=== PATIENT | female | born 1995 ===

== ENCOUNTER 2022-10-25 09:55 | Outpatient (REF) | payer OTHER, SELFPAY ==
[2022-10-25 10:09] LABS: MANUAL DIFF FLAG NO
[2022-10-25 10:29] LABS: Basophils Percent Auto 0.3 % (0-2); Eosinophils Percent Auto 0.5 % (0-4); Hematocrit 36.9 % (37.0-47.0); Hemoglobin 10.9 g/dl (12.0-16.0); Imm Gran Abs Auto 0.06 X10*3/uL (0.00-0.03); Lymphocytes Absolute Auto 1.7 X10*3/uL (1.2-4.9); Lymphocytes Percent Auto 28.7 % (20-40); Mean Corpuscular HGB Conc 29.5 g/dl (31.0-35.0); Mean Corpuscular Hemoglobin 24.4 pg (27.0-33.0); Mean Corpuscular Volume 82.7 fL (80.0-98.0); Mean Platelet Volume 11.2 fL (9.4-12.3); Monocytes Absolute Auto 0.6 X10*3/uL (0.1-1.2); Monocytes Percent Auto 9.4 % (2-11); Neutrophils Absolute Auto 3.5 x10*3/uL (2.0-8.3); Neutrophils Percent Auto 60.1 % (45-73); Platelet Count 333 X10*3/uL (160-400); Red Blood Count 4.46 X10*6/uL (4.20-5.50); Red Cell Distribution Width 15.2 % (11.0-16.0); White Blood Count 5.9 X10*3/uL (4.8-10.8)
[2022-10-25 11:24] LABS: Alanine Aminotransferase 10 U/L (0-31); Albumin Level 3.9 g/dL (3.5-5.0); Alkaline Phosphatase 73 U/L (39-117); Anion Gap 10 (12-20); Aspartate Amino Transferase 13 U/L (5-31); Bilirubin Total 0.4 mg/dL (0.0-1.0); Blood Urea Nitrogen 13 mg/dL (9-16); Calcium 8.7 mg/dL (8.4-10.2); Carbon Dioxide 23 mmol/L (22-29); Chloride 111 mmol/L (96-108); Cholesterol 149 mg/dL; Estimated Glomerular Filt Rate > 60; Glucose Fasting 92 mg/dL (60-99); HDL Cholesterol 43 mg/dL; LDL Cholesterol Calculated 100 mg/dl; Sodium 140 mmol/L (135-145); Thyroid Stimulating Hormone 0.97 uIU/mL (0.32-4.0); Total Protein 6.1 g/dL (6.5-8.0); Triglycerides 32 mg/dL
== END 2022-10-25 09:56 | disposition home or self-care (01) ==
LOC: HO.LAB 09:55
PROVIDERS: PCP Internal Medicine; Visit Provider Internal Medicine
DX: R42 Dizziness and giddiness (principal); E66.9 Obesity, unspecified; R07.9 Chest pain, unspecified; N20.0 Calculus of kidney; Z68.31 Body mass index [BMI] 31.0-31.9, adult
CPT/HCPCS: 36415; 80053; 80061; 84443; 85025

== ENCOUNTER 2023-06-06 10:07 | Outpatient (REF) | payer OTHER, SELFPAY ==
--- NOTE | ~2023-06-06 | XR_ITS ---
EXAMINATION: XR ABDOMEN KUB CLINICAL INDICATION: Calculus of kidney COMPARISON: None available. TECHNIQUE: AP view of the abdomen. FINDINGS: The bowel gas pattern is normal with no evidence of ileus or obstruction. No unusual soft tissue calcifications are noted. The bones are unremarkable. XR/XR KUB IMPRESSION: Unremarkable chest examination.
--- NOTE | 2023-06-06 10:12 | ECG_ITS ---
Test Reason : CHEST PAIN Blood Pressure : / mmHG Vent. Rate : 077 BPM Atrial Rate : 077 BPM P-R Int : 170 ms QRS Dur : 078 ms QT Int : 376 ms P-R-T Axes : 031 013 -28 degrees QTc Int : 425 ms Normal sinus rhythm T wave abnormality, consider inferior ischemia Abnormal ECG No previous ECGs available Referred By: Dedra Swift Electronically Signed By:UMA BARRETT MD
[2023-06-06 10:28] LABS: MANUAL DIFF FLAG NO
[2023-06-06 11:31] LABS: Basophils Percent Auto 0.3 % (0-2); Eosinophils Percent Auto 0.7 % (0-4); Hematocrit 43.2 % (37.0-47.0); Hemoglobin 13.4 g/dl (12.0-16.0); Imm Gran Abs Auto 0.02 X10*3/uL (0.00-0.03); Imm Gran Pct Auto 0.3 % (0.0-0.4); Lymphocytes Absolute Auto 1.6 X10*3/uL (1.2-4.9); Lymphocytes Percent Auto 27.2 % (20-40); Mean Corpuscular Hemoglobin 28.9 pg (27.0-33.0); Mean Corpuscular Volume 93.3 fL (80.0-98.0); Mean Platelet Volume 11.1 fL (9.4-12.3); Monocytes Absolute Auto 0.5 X10*3/uL (0.1-1.2); Neutrophils Absolute Auto 3.7 x10*3/uL (2.0-8.3); Neutrophils Percent Auto 63.5 % (45-73); Platelet Count 359 X10*3/uL (160-400); Red Blood Count 4.63 X10*6/uL (4.20-5.50); Red Cell Distribution Width 12.9 % (11.0-16.0); White Blood Count 5.9 X10*3/uL (4.8-10.8)
[2023-06-06 12:42] LABS: Iron 74 mcg/dL (30-160); Percent Iron Saturation 22 % (15-50); Total Iron Binding Capacity 340 mcg/dL (228-428); Unsaturated Iron Binding 266 ug/dL
== END 2023-06-06 10:08 | disposition home or self-care (01) ==
LOC: HO.XRAY 10:07
PROVIDERS: PCP Internal Medicine; Visit Provider Internal Medicine
DX: Z01.419 Encounter for gynecological examination (general) (routine) without abnormal findings (principal); D64.9 Anemia, unspecified; R07.9 Chest pain, unspecified; N20.0 Calculus of kidney; Z20.2 Contact with and (suspected) exposure to infections with a predominantly sexual mode of transmission
CPT/HCPCS: 36415; 74018; 83540; 85025; 93005

== ENCOUNTER → 2023-06-06 10:12 | Outpatient (BNV) | payer OTHER, SELFPAY | PROVIDERS: PCP Internal Medicine; Visit Provider Internal Medicine Cardiovascular Disease | DX: R07.9 Chest pain, unspecified (principal) | CPT/HCPCS: 93010 ==

== ENCOUNTER 2023-06-06 12:49 | Outpatient (AMB) | payer OTHER, SELFPAY ==
--- NOTE | 2023-06-06 12:51 | A.OFFVIS_ITS ---
Intake Vital Signs 06/06/23 12:52 Height 5 ft 3 in Weight 176 lb BMI 31.2 BP 118/70 Blood Pressure Location Lt brachial Position Sitting Intake Visit Reasons: New patient Annual Environmental Adviser Required: No Accompanied by: Self / Same As Patient Allergies No Known Allergies Allergy (Verified 06/06/23 12:53) Medication List - Last Reconciled 06/06/23 by Julisa Duque CNM No Known Home Meds HPI New patient Annual HPI Details Patient is here for her 1st medical doctor md 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 She has not yet sexually active though did try once she is talking with somebody and on offer is interested it in finding out more information about all the different methods of control available. She does not have any medical problems as far she knows other than she just found out she is anemic because she just had blood work through her primary care provider. She is going to be starting on iron. She would like to eat better but sometimes does not know what would be good to eat and cooking can be challenging. 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 She does not have any other concerns today other than this is her 1st pelvic ever. 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[employer] Current occupational exposures/hazards: No Cognitive needs: No Hearing needs: No Vision needs: No Female Reproductive History Menstrual Age of Menarche: 10 Date of last menstrual period: 05/26/23 Total pregnancies: 0 Physical Exam Vital Signs: Last Vital Signs BP 118/70 06/06/23 12:52 BMI result Body Mass Index 31.2 Const General: healthy appearing, comfortable, no acute distress, well developed and alert Nutritional Appearance: average body habitus Orientation/consciousness: patient oriented x3 Limitations: no limitations HEENT Head: Yes normocephalic Neck Neck: Yes normal visual inspection Thyroid: Thyroid normal Chest Chest palpation & inspection: normal inspection of the chest Breast/axilla inspection: normal inspection of the breasts and normal inspection of the axillae Breast/axilla palpation: normal palpation of the breasts and normal palpation of the axillae Resp Effort & Inspection: normal respiratory effort GI Inspection: Yes normal to inspection, No Abdominal wall edema and No distended Palpation (GI): Soft to palpation and nontender Other: External vulva completely within normal limits vagina pink and moist with normal appearing clear whitish discharge cervix is nulliparous pink smooth and healthy. Uterus is midposition nontender adnexa nontender not enlarged and good tone with Kegel exhibited by pushing out the speculum. General: Yes bladder normal to palpation External Female Exam: normal external appearance and normal appearance of the urethra Speculum Exam - Vagina: normal appearance of the vagina, normal palpation and normal vaginal discharge Speculum Exam - Cervix: normal appearance of the cervix, normal palpation and nontender Bimanual exam- vagina & uterus: normal bimanual exam, normal palpation, uterine size normal, bladder normal to palpation, consistency normal, normal palpation, uterine mobility normal, uterine shape normal, No Cervical tenderness present, non-tender and no cervical motion tenderness Bimanual Exam- Adnexa, other: normal adnexae, no masses, normal and No adnexal tenderness Neuro General: patient oriented x3 Assessment & Plan Assessment & Plan (1) Well woman exam with routine gynecological exam: Code(s): Z01.419 - Encounter for gynecological examination (general) (routine) without abnormal findings (2) Screen for sexually transmitted diseases: Code(s): Z11.3 - Encounter for screening for infections with a predominantly sexual mode of transmission (3) Screening for cervical cancer: Comment: 06/06/2023 1st Pap done. Patient believes she had Gardasil at the [facility] but will double check her records. Code(s): Z12.4 - Encounter for screening for malignant neoplasm of cervix (4) control counseling: Code(s): Z30.09 - Encounter for other general counseling and advice on contraception Plan -----Discussed in this visit the following: healthy balanced diet, regular and consistent exercise, getting recommended health screens, doing the best she can for her particular health concerns, kegel exercises, pap smear screening and followup recommendations, mammography screening and SBE, normal changes in cycles in her life stage--- .-I reviewed with the patient, all of the currently common used methods of control that are available. We reviewed how they work in the body, how they are taken, common side effects, uncommon side effects, precautions, and contraindications. -Discussed also factors that influence their effectiveness and use, and womens satisfaction with the method. -Discussed how each are used, and drawbacks of each method as well. -Methods covered included: condoms, control pills, control patches, control rings, Depo-Provera, Nexplanon, Mirena and Kyleena IUDs, and ParaGard IUDs. She also inquired about Plan B, and I did teaching about this and offered her prescription and did stress that it is not in fact plan a but if a condom breaks or another method does not get used it can be a helpful tool. I sent a prescription for her to her pharmacy for plan B with 1 refill and if she does decide to become sexually active and therefore needs a better method she should call and make an appointment and we will go over all the other methods again and offer her something else. Orders: Orders Bacterial Vaginosis Panel Today Z12.4 - Encounter for screening for malignant neoplasm of cervix CT NG by PCR Today Z12.4 - Encounter for screening for malignant neoplasm of cervix Pap Smear Today Z12.4 - Encounter for screening for malignant neoplasm of cervix Medications: New levonorgestrel (Plan B One-Step) 1.5 mg PO ONCE 1 tab 2RF Coding Level of Care Code New Pt Prev Care 18-39yr([id number] Diagnoses Well woman exam with routine gynecological exam Z01.419 Screen for sexually transmitted diseases Z11.3 Screening for cervical cancer Z12.4 control counseling Z30.09
[2023-06-06 12:52] VITALS: BP 118/70; BMI 31.2
== END 2023-06-06 13:41 | disposition home or self-care (01) ==
LOC: HO.HWSM 12:49
PROVIDERS: PCP Internal Medicine; Visit Provider Advanced Practice Midwife
DX: Z01.419 Encounter for gynecological examination (general) (routine) without abnormal findings (principal)
CPT/HCPCS: 99385

== ENCOUNTER 2023-06-06 13:32 | Outpatient (REF) | payer OTHER, SELFPAY ==
[2023-06-06 17:59] LABS: CT PCR NOT DETECTED (Not Detect.); NG PCR NOT DETECTED (Not Detect.)
[2023-06-07 14:53] LABS: BV Int Neg Control Negative (Negative); BV Int Pos Control Positive (Positive)
== END 2023-06-06 13:33 | disposition home or self-care (01) ==
LOC: HO.LNP 13:32
PROVIDERS: Visit Provider Advanced Practice Midwife
DX: Z01.419 Encounter for gynecological examination (general) (routine) without abnormal findings (principal); R07.9 Chest pain, unspecified; N20.0 Calculus of kidney; D64.9 Anemia, unspecified; Z20.2 Contact with and (suspected) exposure to infections with a predominantly sexual mode of transmission
CPT/HCPCS: 0353U; 87480; 87510; 87660; 88142

== ENCOUNTER 2023-08-29 13:07 | Outpatient (AMB) | payer OTHER, SELFPAY ==
--- NOTE | 2023-08-29 13:11 | MHC.OFFVIS ---
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 Patient does not have any history of coronary disease or cardiomyopathy or in fact any cardiac issues. No drug use. No major comorbidities. No family history of any premature CAD. It seems she has been having some random chest pains. No specific patterns and essentially happen any time across the chest. No other complaints like shortness of breath or syncope. 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[employer] Current occupational exposures/hazards: No Cognitive needs: No Hearing needs: No Vision needs: No Female Reproductive History Menstrual Age of Menarche: 10 Review of Systems Const All systems reviewed & are unremarkable except as noted in HPI and below Reports as per HPI and Reports no additional complaints Eyes Reports as per HPI and Denies no additional complaints ENT Denies no additional complaints and Reports as per HPI Card Reports as per HPI, Reports no additional complaints, Denies acrocyanosis, Denies chest pain, Denies leg edema, Denies lightheadedness, Denies palpitations and Denies dyspnea Resp Reports as per HPI, Denies no additional complaints and Denies dyspnea GI Reports as per HPI and Denies no additional complaints Reports as per HPI Musc Reports no additional complaints and Reports as per HPI Skin/Breast Reports system reviewed and no additional complaints, except as documented Neuro Reports no additional complaints and Reports as per HPI Psych Reports no additional complaints and Reports as per HPI Endo Reports no additional complaints, Reports as per HPI and Denies palpitations Tomas/Lymph Reports no additional complaints and Reports as per HPI Aller/Immun Reports no additional complaints and Reports as per HPI Physical Exam Vital Signs: Last Vital Signs Pulse 100 08/29/23 13:12 BP 110/76 08/29/23 13:12 BMI result Body Mass Index 32.0 Const General: comfortable and no acute distress Orientation/consciousness: patient oriented x3 HEENT Other: Unremarkable Head: Yes normal to inspection Neck Neck: Yes normal visual inspection Chest Chest palpation & inspection: normal inspection of the chest Resp Auscultation: clear to auscultation bilaterally Cardio Palpation: normal PMI Heart sounds: S1 normal heart sound present, S2 normal heart sound present, no gallops, no murmurs and no rubs GI Palpation (GI): Soft to palpation Back/Spine/Pelvis Other: unremarkable Skin General skin exam: no rashes or lesions noted Neuro General: patient oriented x3 Extrem General: Yes normal to inspection Psych Mental Status: mental status grossly normal Assessment & Plan Assessment & Plan (1) Abnormal EKG: Code(s): R94.31 - Abnormal electrocardiogram [ECG] [EKG] (2) Chest pain: Code(s): R07.9 - Chest pain, unspecified Qualifiers: Chest pain type: precordial pain Qualified Code(s): R07.2 - Precordial pain Plan Recent EKG shows sinus rhythm at 77/Min; nonspecific ST-T changes across the anterolateral leads. Inverted T-waves on the inferior leads. Patient has essentially no risk factors, atypical symptoms but abnormal looking EKG. Will start with an echocardiogram and stress test and based on findings, we can plan further care. Orders: Orders CA echo transthoracic complete Today R07.9 - Chest pain, unspecified CA echo stress exercise Today R07.9 - Chest pain, unspecified Coding Level of Care Code New Pt Level 3 (84379) Diagnoses Abnormal EKG R94.31 Precordial pain R07.2 Chest pain type: precordial pain
[2023-08-29 13:12] VITALS: BP 110/76; PULSE 100; BMI 32.0
== END 2023-08-29 13:28 | disposition home or self-care (01) ==
PROVIDERS: PCP Internal Medicine; Visit Provider Internal Medicine
DX: R94.31 Abnormal electrocardiogram [ECG] [EKG] (principal); R07.2 Precordial pain
CPT/HCPCS: 99203

== ENCOUNTER → 2023-08-29 13:07 | Outpatient (BNVA) | payer OTHER, SELFPAY | PROVIDERS: PCP Internal Medicine; Visit Provider Internal Medicine ==

== ENCOUNTER → 2023-09-25 09:06 | Outpatient (REF) | payer OTHER, SELFPAY ==
--- NOTE | 2023-09-25 09:09 | CA_ITS ---
Transthoracic Echocardiogram Patient (Last, First, Middle): Dedra Manrique, Gender: Female Date of : 1995 Age: 27 Procedure Date: 09/25/2023 Procedure Type: Transthoracic Echocardiogram Location: OP Height: 160.02 cm Weight: 81.65 kg BSA: 1.85 m2 Heart Rate: 81 bpm BP: 122 / 80 mmHg Data Entry Email Processor: ARTIS Referring MD: Huy Mock MD Symptoms: R07.9 - Chest pain, unspecified Study Quality: Fair ECG Rhythm: Sinus Conclusions: - The left ventricular systolic function is normal. The calculated ejection fraction is 58% by biplane method. - No obvious valvular pathology seen on this study. Findings Left Ventricle Normal left ventricular cavity size. There is normal left ventricular wall thickness. The left ventricular systolic function is normal. The calculated ejection fraction is 58% by biplane method. There is no evidence of regional wall motion abnormalities. Diastolic function is normal for age. Right Ventricle Normal right ventricular cavity size and systolic function. Atria Both atria are normal in size. Aortic Valve There is a normal trileaflet aortic valve. There is no aortic valve stenosis. There is no aortic valve regurgitation. Mitral Valve The mitral valve appears normal. There is no mitral valve regurgitation. There is no mitral valve stenosis. Pulmonic Valve The pulmonic valve is likely normal. Tricuspid Valve There is trace tricuspid valve regurgitation. There is no evidence of pulmonary hypertension. Great Vessels The asc aorta is normal in size. Venous The inferior vena cava is normal in size and collapses greater than 50% with inspiration. Pericardium/Pleural There is no evidence of pericardial effusion. Prior Study Comparison No prior study available for comparison. Recommendations, Care & Conclusions No obvious valvular pathology seen on this study. Measurements 2D Linear Measurements IVSd: 0.64 0.6-0.9/0.6-1.0 cm LVIDd: 5.12 3.9-5.3/4.2-5.9 cm LVIDd Index: 2.77 2.4-3.2/2.2-3.1 cm/m2 LVIDs: 3.50 2.0-3.6 cm LVPWd: 0.76 0.7-1.1 cm LA Diam: 3.20 2.7-3.8/3.0-4.0 cm LAIDs Index: 1.73 1.5-2.3 cm/m2 LV Mass: 148.27 67-162/88-224 g LV Mass Index: 80.15 43-95/49-115 g/m2 LVOT Diam: 2.10 3.0+(-)1.3 cm 2D Systolic Function EF 4C: 54.70 >55% EF 2C: 58.30 >55% EF BiP: 57.90 >55% Mitral Valve MV Pk E: 0.62 MV PK A: 0.44 MV Decel Time: 190.00 E/A: 1.40 E'Lateral: 12.90 E'Medial: 10.20 E/E' Med: 6.00 E/E' Lat: 4.80 PHT: 56.00 MVA PHT: 3.93 Decel Johnston: 3.24 Aortic Valve AoV Pk Fernando: 1.13 AoV Mn Fernando: 0.82 AoV VTI: 0.24 AoV Pk Grad: 5.00 Aov Mn Grad: 3.00 ANABEL Cont.VTI: 2.57 LVOT LVOT Pk Fernando: 0.88 LVOT Mn Fernando: 0.64 LVOT VTI: 0.18 LVOT Pk Grad: 3.00 LVOT Mn Grad: 2.00 LVOT Diam: 2.10 LVOT Area: 3.46 Diastolic Function MV Pk E: 0.62 MV Pk A: 0.44 E/A: 1.40 E'Medial: 10.20 E/E' Med: 6.00 E' Laterial: 12.90 E/E' Lat: 4.80 Right Ventricle TAPSE (mm): 20.00 TVS' Fernando: 12.20 Tricuspid Valve RA Press: 3.00 Great Vessels Aorta Sinus of Valsalva: 3.10 2.0-3.5 cm Ao Asc: 2.70 2.1-3.4 cm Pulmonary Valve PV Pk Fernando: 1.07 Peak PV Grad: 5.00 Updated in Other Vendor System with Status of Final Huy Mock MD electronically signed on 09/25/2023 1:03:29 PM with status of Final
== END ==
LOC: HO.CARD 09:06
PROVIDERS: PCP Internal Medicine; Visit Provider Internal Medicine
DX: R07.9 Chest pain, unspecified (principal)
CPT/HCPCS: 93306

== ENCOUNTER → 2023-09-25 09:09 | Outpatient (BNV) | payer OTHER, SELFPAY | PROVIDERS: PCP Internal Medicine; Visit Provider Internal Medicine | DX: R07.9 Chest pain, unspecified (principal) | CPT/HCPCS: 93306 ==

== ENCOUNTER → 2023-10-02 11:02 | Outpatient (REF) | payer OTHER, SELFPAY ==
--- NOTE | 2023-10-02 11:23 | CA_ITS ---
Acquisition Time: 2023-10-02 11:15:46 Total Exercise Time: 00:09:45 Test Indications: Abnormal ECG Medications: CONTROL Protocol: BRANT Max HR: 179 BPM 93% of Pred: 191 BPM Max BP: 144/082 mmHG Max Work Load: 11.3 METS Exercise stress test exercuse 9 min 45 sec of Brant protocol achieving 93% MPHR, without anginal symptoms, with isolated PACs, with normotensive response to exercise, without EKG changes. Echo images obtained by tech at rest and immedately post peak exercise. Test reviewed with Dr. Cervantes. No definity or IV placed due to vasovagal episode. Referred By: Huy Mock Overread By: Radha Bernardo
== END ==
LOC: HO.CARD 11:02
PROVIDERS: PCP Internal Medicine; Visit Provider Internal Medicine
DX: R07.9 Chest pain, unspecified (principal)
CPT/HCPCS: 93017; 93350; Q9957

== ENCOUNTER → 2023-10-02 11:23 | Outpatient (BNV) | payer OTHER, SELFPAY | PROVIDERS: PCP Internal Medicine; Visit Provider Nurse Practitioner | DX: R94.31 Abnormal electrocardiogram [ECG] [EKG] (principal) | CPT/HCPCS: 93016; 93018; 93350; 93352 ==

== ENCOUNTER 2023-11-28 09:37 | Outpatient (AMB) | payer OTHER, SELFPAY ==
--- NOTE | 2023-11-28 09:44 | A.OFFVIS_ITS ---
Intake Vital Signs 11/28/23 09:45 Height 5 ft 3 in Weight 185 lb 10.067 oz BMI 32.9 BP 120/84 Blood Pressure Location Lt brachial Position Sitting Pulse 87 Pulse Source Pulse Oximeter Intake Visit Reasons: f/up ett/ echo Automotive Light Mechanic Required: No Entertainment Production Professional: Entertainment Production Professional Present Allergies No Known Allergies Allergy (Verified 11/28/23 09:47) Medication List - Last Reconciled 11/28/23 by Fatuma Lugo NP-C levonorgestrel (Plan B One-Step) 1.5 mg PO ONCE PFSH Surgical History No pertinent past surgical history Family History Mother Hypertension Father Type II diabetes mellitus High cholesterol Hypertension Social History Housing: House Alcohol intake: current Alcohol intake frequency: holidays/special occasions only Alcohol type: beer and hard liquor Patient Tobacco Use Status: Never used Tobacco e-Cigarette/Vaping Use: Never Used Second Hand Smoke Exposure: No service: No Current occupational status: employed 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[employer] Current occupational exposures/hazards: No Cognitive needs: No Hearing needs: No Vision needs: No Female Reproductive History Menstrual Age of Menarche: 10 Review of Systems Const All systems reviewed & are unremarkable except as noted in HPI and below ENT Denies dizziness Card Denies chest pain, Denies chest pain at rest, Denies chest pain with activity, Denies rapid heart rate, Denies pedal edema, Denies edema, Denies leg edema, Denies lightheadedness, Denies palpitations, Reports dyspnea, Denies dyspnea on exertion and Denies orthopnea Resp Denies cough, Reports dyspnea and Denies dyspnea on exertion GI Denies hematochezia and Denies change in stool character Musc Denies abnormal gait, Denies limited range of motion, Denies muscle cramps, Denies muscle weakness, Denies numbness, Denies radiating pain into limb, Denies stiffness and Denies tingling Neuro Denies abnormal gait, Denies dizziness, Denies numbness and Denies tingling Endo Denies palpitations Physical Exam Vital Signs: Last Vital Signs Pulse 87 11/28/23 09:45 BP 120/84 11/28/23 09:45 BMI result Body Mass Index 32.9 Const General: cooperative, healthy appearing, comfortable and no acute distress Orientation/consciousness: patient oriented x3 Neck Neck: Yes normal visual inspection Resp Effort & Inspection: normal respiratory effort Auscultation: clear to auscultation bilaterally, no crackles, no rales, no rhonchi and no wheezes Cardio Jugular venous distension: no JVD Rate: regular rate Rhythm: regular rhythm Heart sounds: S1 normal heart sound present, S2 normal heart sound present, no murmurs and no rubs Neuro General: patient oriented x3 Extrem General: Yes normal to inspection, No no pedal edema and No calf tenderness Psych Appearance: grossly normal Mental Status: mental status grossly normal Speech and movement: Normal speech and movement present Assessment & Plan Assessment & Plan (1) Abnormal EKG: Code(s): R94.31 - Abnormal electrocardiogram [ECG] [EKG] Plan: Patient had been referred to Cardiology for findings of abnormal EKG. EKG done on 06/06/2023 shows normal sinus rhythm with T-wave abnormality in the inferior leads, lead 3 and AVF, slight T-wave inversion as well seen in V3 and V4. No cardiac risk factors. No reports of anginal sounding symptoms. She did undergo an echocardiogram on 09/25 2023 showing EF 58%, normal valves and no regional wall motion abnormalities. An exercise stress echocardiogram done on 10/02/2023 showed exercise 9 minutes 45 seconds without anginal symptoms and no EKG or echo evidence of ischemia. Test results reviewed with her in detail. Findings on EKG are normal variant. No ischemic findings identified. No further testing needed at this time. Cardiology follow-up as needed Plan Time spent on chart review, documentation, interview and assessment Coding Level of Care Code Est Pt Level 3 (73034) Diagnoses Abnormal EKG R94.31 Time Spent (min) 20
[2023-11-28 09:45] VITALS: BP 120/84; PULSE 87; BMI 32.9
== END 2023-11-28 10:17 | disposition home or self-care (01) ==
PROVIDERS: PCP Internal Medicine; Visit Provider Nurse Practitioner Family
DX: R94.31 Abnormal electrocardiogram [ECG] [EKG] (principal)
CPT/HCPCS: 99213

== ENCOUNTER → 2023-11-28 09:37 | Outpatient (BNVA) | payer OTHER, SELFPAY | PROVIDERS: PCP Internal Medicine; Visit Provider Nurse Practitioner Family | DX: R94.31 Abnormal electrocardiogram [ECG] [EKG] (principal) | CPT/HCPCS: 99212 ==

== ENCOUNTER 2024-01-24 09:03 | Outpatient (AMB) | payer OTHER, SELFPAY ==
[2024-01-24 09:07] VITALS: BP 120/80; BMI 32.6
--- NOTE | 2024-01-24 09:07 | A.OFFPC_ITS ---
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 Last Pap smear was 2022. She denies any chest pain or shortness of breath. No change in bowel or bladder habits. 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 1. Little interest or pleasure in doing things: not at all 2. Feeling down, depressed, or hopeless: not at all 3. Trouble falling or staying asleep, or sleeping too much: not at all 4. Feeling tired or having little energy: not at all 5. Poor appetite or overeating: not at all 6. Feeling bad about yourself - or that you are a failure or have let yourself or your family down: not at all 7. Trouble concentrating on things, such as reading the newspaper or watching television: not at all 8. Moving or speaking so slowly that other people could have noticed. Or the opposite - being so fidgety or restless that you have been moving around a lot more than usual: not at all 9. Thoughts that you would be better off or of hurting yourself in some way: not at all Total score: 0 Depression Screening Interpretation: Negative Depression Screening Done: Yes 77150 - PHQ-9 Billing: Yes Source: Developed by Drs. Chapin Herndon, Kirti Eaton, Daniel Cornejo and colleagues, with an educational lashell from [employer] Thrive Questionnaire Date Thrive assessed: 01/24/24 I am a: Patient What is your living situation today?: I have a steady place to live Within the past 12 months, did the food you bought not last and you didn't have the money to get more?: Never true Within the past 12 months, did you worry whether your food would run out before you got money to buy more?: Never true Do you have trouble paying for medicines?: No Do you have trouble getting transportation to medical appointments?: No Do you have trouble paying your heating and electricity bill?: No Do you have trouble taking care of your child, family member or friend?: No Do you have trouble with day-to-day activities such as bathing, preparing meals, shopping, managing finances, etc.?: No Are you currently unemployed and looking for a job?: No Are you interested in more education?: No Please select the resources that you would like help with: None Currently or been in a relationship where the following occur: no concerns reported THRIVE Score: 0 AUDIT C Alcohol Use Questionnaire (AUDIT-C) 1. How often do you have a drink containing alcohol?: Monthly or less 2. How many drinks containing alcohol do you have on a typical day when you are drinking?: 1 or 2 3. How often do you have six or more drinks on one occasion?: Never Total Score: 1 Score Reviewed/Action Taken: No DELLA-7 AMB Questionnaire DELLA-7 Date DELLA - 7 assessed: 01/24/24 Feeling nervous, anxious, or on edge: 0 = Not at all Not being able to stop or control worryin = Not at all Worrying too much about different things: 0 = Not at all Trouble relaxin = Not at all Being so restless that it is hard to sit still: 0 = Not at all Becoming easily annoyed or irritable: 0 = Not at all Feeling afraid as if something awful might happen: 0 = Not at all Total DELLA-7 score (0-4 normal; 5-9 mild; 10-14 moderate; 15-21 severe): 0 Source: Developed by Drs. Chapin Herndon, Kirti Eaton, Daniel Cornejo and colleagues, with an educational lashell from [employer] DELLA-7 Assessment Billing DELLA-7 Assessment Tool: DELLA-7 Assessment 22610 Review of Systems Const All systems reviewed & are unremarkable except as noted in HPI and below Eyes Reports no additional complaints, Denies change in vision and Denies other visual disturbances Card Denies chest pain at rest, Denies chest pain with activity, Denies edema, Denies irregular heart rhythm, Denies claudication, Denies dyspnea, Denies dyspnea on exertion, Denies orthopnea, Denies paroxysmal nocturnal dyspnea and Denies slow heart rate Resp Denies cough, Denies dyspnea and Denies dyspnea on exertion GI Denies abdominal pain, Denies change in bowel habits, Denies excessive flatus, Denies nausea and Denies vomiting Denies urinary incontinence, Denies urinary hesitancy and Denies urinary urgency Musc Denies abnormal gait, Denies atrophy, Denies deformity and Denies limited range of motion Skin/Breast Denies bleeding lesions, Denies changing lesions and Denies rash Neuro Denies abnormal gait, Denies behavioral changes, Denies confusion and Denies lack of coordination Psych Denies behavioral changes and Denies confusion Physical exam (Primary Care) Vital Signs: Last Vital Signs BP 120/80 01/24/24 09:07 BMI result Body Mass Index 32.6 Tobacco/Smoking Status: Tobacco use Status Tobacco use date assessed 01/24/24 01/24/24 09:11 Patient Tobacco Use Status Never used Tobacco 01/24/24 09:09 e-Cigarette/Vaping Use Never Used 01/24/24 09:09 PHQ-9: PHQ-9 Score PHQ-9: Total score 0 01/24/24 09:21 Depression Screening Interpretation: Negative Thrive Assessment: Date of Thrive Assessment Date Thrive assessed 01/24/24 01/24/24 09:11 Currently or been in a relationship where the following occur: no concerns reported Const General: No confusion Orientation/consciousness: patient oriented x3 and No confusion HENMT Head: Yes normal to inspection, Yes normocephalic and Yes atraumatic Ears: external ears normal Eyes General: appearance normal, both eyes and all related structures Eyelids: Yes eyelids normal Conjunctivae: conjunctivae normal Neck Neck: Yes normal visual inspection and Yes supple Resp Effort & Inspection: normal respiratory effort Auscultation: clear to auscultation bilaterally Cardio Jugular venous distension: no JVD Rate: regular rate Rhythm: regular rhythm Heart sounds: S1 normal heart sound present and S2 normal heart sound present GI Inspection: Yes normal to inspection Palpation (GI): Soft to palpation and nontender Auscultation: normal bowel sounds Skin General skin exam: no rashes or lesions noted Neuro General: patient oriented x3, no focal motor deficits and No confusion Extrem General: Yes full ROM Psych Appearance: grossly normal Assessment and Plan Assessment & Plan (1) Physical exam: Code(s): Z00.00 - Encounter for general adult medical examination without abnormal findings Plan: Repeat in a year. Orders: Orders T Spot TB Today Z11.1 - Encounter for screening for respiratory tuberculosis Mumps Virus IgG Antibody Today Z23 - Encounter for immunization Rubella IgG Antibody Today Z23 - Encounter for immunization Rubeola IgG (Measles) Today Z23 - Encounter for immunization Coding Level of Care Code Est Pt Prev Care 18-39y(35443) Diagnoses Physical exam Z00.00 Additional Codes DELLA-7 Assessment Billing - DELLA-7 Assessment Tool: DELLA-7 Assessment 73391 ([id number]) Time Spent (min) 31
== END 2024-01-24 09:26 | disposition home or self-care (01) ==
PROVIDERS: Visit Provider Internal Medicine
DX: Z00.00 Encounter for general adult medical examination without abnormal findings (principal)
CPT/HCPCS: 99395

== ENCOUNTER 2024-03-08 22:10 | Emergency (ER) | payer OTHER, SELFPAY ==
[2024-03-08 22:17] VITALS: BP 126/79; PULSE 78; RESP 16; TEMP 37.1; O2SAT 100; BMI 31.9
--- NOTE | 2024-03-09 03:12 | ED_ITS ---
HPI - General Adult General Chief complaint: General Medical Stated complaint: Vaginal and Anal pain Time Seen by Provider: 03/09/24 02:21 Source: patient Mode of arrival: ambulatory Limitations: no limitations History of Present Illness HPI narrative: Patient comes to the emergency room complaining of perianal pain for several days, close to a week. Patient denies fever chills, no rash Related Data Previous Rx's ?Medication ?Instructions ?Recorded lidocaine 5 % topical ointment 1 appl topical QID PRN pain #50 03/09/24 grams polyethylene glycol 3350 17 17 g PO DAILY #510 grams 03/09/24 gram/dose oral powder (Miralax) tramadol 50 mg tablet 50 mg PO BID PRN pain #6 tabs 03/09/24 Allergies Allergy/AdvReac Type Severity Reaction Status Date / Time No Known Allergies Allergy Verified 03/08/24 22:18 Review of Systems Review of Systems: Constitutional : No Weight loss, No Fever, No Chills, No Night Sweats, No Fatigue, No Malaise ENT/Mouth : No Hearing loss, No Ear Pain, No Nasal Congestion, No Sinus Pain, No Hoarseness, No sore throat, No Rhinorrhea, No Swallowing Difficulty Eyes: No Eye Pain, No Swelling, No Redness, No Foreign Body, No Discharge, No Vision Changes Cardiovascular : No Chest Pain, No SOB, No Dyspnea on Exertion, No Orthopnea, No Edema, No Palpitations Respiratory : No Cough, No Sputum, No Wheezing, No Smoke Exposure, No Dyspnea Gastrointestinal : No Nausea, No Vomiting, No Diarrhea, No Constipation, No abdominal Pain, No Hematochezia, No Melena Genitourinary : Complaining of perineal pain/anal pain, no irregular bleeding, No Dysuria, No Urinary Frequency, No Hematuria, No Urinary Incontinence, No Urgency, No Flank Pain, No Urinary Flow Changes, No Hesitancy Musculoskeletal : No joint pain, No Myalgias, No Joint Swelling Skin : No Skin Lesions, No rash Neuro : No Weakness, No Numbness, No Paresthesias, No Loss of Consciousness, No Dizziness, No Headache Psych : No Anxiety/Panic, No Depression, No SI/HI/AH/VH, No Social Issues, Heme/Lymph: No Bruising, No Bleeding,No Lymphadenopathy Endocrine : No Polyuria, No Polydipsia, No Temperature Intolerance PMFSH Past Medical History Surgical History No pertinent past surgical history Family History Family History Mother Hypertension Father Type II diabetes mellitus High cholesterol Hypertension Social History Social History Housing: House Alcohol intake: current Alcohol intake frequency: holidays/special occasions only Alcohol type: beer and hard liquor Patient Tobacco Use Status: Never used Tobacco e-Cigarette/Vaping Use: Never Used Second Hand Smoke Exposure: No Advance Directives: No Advance Directives Information Provided: Yes Do you have a plan to hurt others: No Plan service: No Current occupational status: employed 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 Oriented X3. No acute distress. Eyes: Pupils equal, round and reactive to light. ENT: Pharynx normal. Neck: Normal inspection. Neck supple. No lymph nodes noted. No crepitus CVS: Normal heart rate and rhythm. Pulses normal. Normal S1 and S2 Respiratory: No respiratory distress. Breath sounds normal. No Wheezing. No ra les Abdomen: Soft and nontender. No rigidity. No distention. Large external thrombosed hemorrhoid present : Vulva within normal limits, perineum within normal limits. Skin: Skin warm and dry. Normal skin color. Normal skin turgor. Extremities: No lower extremity edema. No Lacerations. No Rash Neuro: Oriented X 3. No motor deficit. No sensory deficit. Moving all extremities. No slurred speech. CN 2 through 12 grossly intact Psych: calm, cooperative, normal affect Course Course Course Narrative: -I discussed with the patient that the best next step, is to use topical anesthetics and drained the thrombosed hemorrhoid. I discussed the procedure with the patient, patient agreeable. -patient given p.o. oxycodone prior to starting. Medications Administered Discontinued Medications Generic Name Dose Route Start Last Admin Trade Name Freq PRN Reason Stop Dose Admin Oxycodone HCl 5 mg 03/09/24 03:12 03/09/24 03:20 Oxycodone Hcl Immed Release 5 Mg Tablet PO 03/09/24 03:13 5 mg ONCE ONE Administration Medical Decision Making Medical Decision Making MDM Narrative: -patient was injected in the thrombosed hemorrhoid with 6 cc of 2% lidocaine with epinephrine -an elliptical incision was made, large thrombus was drained -packing was inserted. -patient tolerated well the procedure -I discussed with the patient that she should use 5% topical lidocaine 10-15 minutes prior to having a bowel movement to help numb. Also, discussed with the patient that she needs to make sure that she has soft bowel movements, MiraLax was sent to the patient's pharmacy. -patient instructed to have close follow-up with Dr. Beatty Differential Diagnosis Differential Diagnoses: The differential diagnosis associated with the presentation includes (Thrombosed hemorrhoid) Critical Care Time Critical Care Time Critical Care Time: Yes Total Critical Care Time: 35 Attestation: I have personally provided critical care time. Time includes review of lab data, radiology results, discussion with consultants, and monitoring for potential decompensation. Intervention performed as documented. Discharge Plan Discharge Clinical Impression: External hemorrhoid, thrombosed Patient Disposition: Home, Self-Care Instructions: Hemorrhoids (ED), Sitz Bath (DC) Additional Instructions: You have packing in the anal area. Be straight to keep it inside at least until Monday. If it becomes soiled with fecal material or if it falls out, continue doing Sitz baths, do not reinsert. Please follow-up with your primary care physician tomorrow. Also, please make sure that you call Dr. Beatty ' office for a follow-up appointment. If you have any worsening or new symptoms, please return to the emergency room or call 911 Prescriptions: New lidocaine 5 % ointment 1 appl topical QID PRN (Reason: pain) Qty: 50 0RF Rx Instructions: Use topical 15-20 minutes prior to bowel movements and p.r.n. pain tramadol 50 mg tablet 50 mg PO BID PRN (Reason: pain) Qty: 6 0RF polyethylene glycol 3350 [Miralax] 17 gram/dose powder 17 g PO DAILY Qty: 510 0RF Referrals: Lul Beatty MD [Physician] - 03/11/24 Print Language: Mongolian
[2024-03-09 03:20] VITALS: BP 122/77; PULSE 66; RESP 14; TEMP 37.1; O2SAT 98
[2024-03-09] MEDS: oxyCODONE HCl Immed Release 5 MG TABLET PO (03:20)
[2024-03-09] MEDS: Lidocaine HCl 2%/Epi 1:100,000 20 ML VIAL INFILTRATI (04:25)
[2024-03-09 04:30] VITALS: BP 122/77; PULSE 66; RESP 14; TEMP 37.1; O2SAT 98
== END 2024-03-09 04:31 | disposition home or self-care (01) ==
PROVIDERS: Emergency Provider Emergency Medicine; PCP Internal Medicine
DX: K64.5 Perianal venous thrombosis (principal)
CPT/HCPCS: 46083; 99284

== ENCOUNTER 2024-03-11 13:45 | Outpatient (AMB) | payer OTHER, SELFPAY ==
--- NOTE | 2024-03-11 13:46 | MHC.OFFVIS ---
Vital Signs 03/11/24 13:55 Height 5 ft 3 in Weight 181 lb BMI 32.1 BP 94/58 L Blood Pressure Location Lt brachial Position Standing Pulse 127 H Intake Visit Reasons: Hemorrhoids Intake Note: This patient presents for [facility] ER follow-up for thrombosed hemorrhoid. Patient c/o; reports pain, unable to sit, reports rectal bleeding. Addiction Social Worker Required: No Accompanied by: Mother Allergies No Known Allergies Allergy (Verified 03/11/24 13:54) Medication List - Last Reconciled 03/11/24 by Lul Beatty MD lidocaine 5% 1 appl topical QID PRN polyethylene glycol 3350 (Miralax) 17 grams PO DAILY tramadol 50 mg PO BID PRN HPI HPI Hemorrhoids: Details: 28-year-old female referred for hemorrhoids. She went to the ER 2 days ago because of anal pain which she had been noticing for about 3-4 days. She was diagnosed to have a large thrombosed hemorrhoid. Drainage of this hemorrhoid was done in the ER and she was referred to [facility]. 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 occupational exposures/hazards: No Cognitive needs: No Hearing needs: No Vision needs: No Female Reproductive History Menstrual Age of Menarche: 10 Review of Systems Const Denies chills and Denies fever(s) Card Denies chest pain, Denies dyspnea and Denies dyspnea on exertion Resp Denies cough, Denies dyspnea and Denies dyspnea on exertion GI Denies hematochezia and Denies change in bowel habits Denies hematuria Musc Denies back pain and Denies limited range of motion Neuro Denies focal weakness and Denies convulsions Psych Denies depression and Denies mood swings Physical Exam Const General: comfortable and no acute distress Orientation/consciousness: patient oriented x3 Neck Neck: Yes no lymphadenopathy Resp Auscultation: clear to auscultation bilaterally Cardio Rhythm: regular rhythm GI Other: Rectal exam shows a swollen hemorrhoid, external, on the right side, about 2 cm in widest dimension, with the I&D site along with the packing. I pulled out the packing completely. Palpation (GI): Soft to palpation, nontender and no guarding Neuro General: patient oriented x3 Office Procedures Anoscopy She was in jp-knife position. The anoscope was gently inserted. A full examination of the anal canal was done. [id number] Assessment & Plan Assessment & Plan (1) External hemorrhoid, thrombosed: Code(s): K64.5 - Perianal venous thrombosis Category: Medical Plan: She apparently had a large thrombosed hemorrhoid that was drained in the ER 2 days ago. She does state that she felt much better after this was done. She still appears to be in some pain however. She says that this has improved significantly since Monday I will prescribe her ibuprofen as well for anti-inflammatory effect. I told her to do hot Sitz baths at home or used the shower to do hot soaks I will see her again next week to re-evaluate her. She may likely benefit for hemorrhoidectomy down the line. She is comfortable with the plan. Coding Level of Care Code New Pt Level 3 (94054) Diagnoses External hemorrhoid, thrombosed K64.5 CPT Codes Details - CPT: 56210-Tfovfrrt ([id number])
[2024-03-11 13:55] VITALS: BP 94/58; PULSE 127; BMI 32.1
== END 2024-03-11 14:15 | disposition home or self-care (01) ==
PROVIDERS: PCP Internal Medicine; Visit Provider Surgery
DX: K64.5 Perianal venous thrombosis (principal)
CPT/HCPCS: 46600; 99203

== ENCOUNTER → 2024-03-11 13:45 | Outpatient (BNVA) | payer OTHER, SELFPAY | PROVIDERS: PCP Internal Medicine; Visit Provider Surgery | DX: K64.5 Perianal venous thrombosis (principal) | CPT/HCPCS: 46600; 99202 ==

== ENCOUNTER 2024-03-20 11:03 | Outpatient (AMB) | payer OTHER, SELFPAY ==
[2024-03-20 11:07] VITALS: BP 120/76; PULSE 97; BMI 32.1
--- NOTE | 2024-03-20 11:07 | A.OFFVIS_ITS ---
Vital Signs 03/20/24 11:07 Height 5 ft 3 in Weight 180 lb 15.992 oz BMI 32.1 BP 120/76 Blood Pressure Location Rt brachial Position Sitting Pulse 97 Intake Visit Reasons: 1 week follow up Thrombosed Hemorrhoids Intake Note: This patient presents for a one week follow-up for thrombosed hemorrhoids. Pt c/o; reports no complaints. Environmental Safety Specialist Required: No Accompanied by: Self / Same As Patient Allergies No Known Allergies Allergy (Verified 03/20/24 11:19) Medication List - Last Reconciled 03/20/24 by Lul Beatty MD ibuprofen 600 mg PO TID PRN lidocaine 5% 1 appl topical QID PRN polyethylene glycol 3350 (Miralax) 17 grams PO DAILY tramadol 50 mg PO BID PRN HPI HPI 1 week follow up Thrombosed Hemorrhoids: Details: She is here for follow-up for her thrombosed hemorrhoids. I would seen her last week for this. I had instructed her on hot Sitz baths and she says this this has improved significantly with regards to pain. Says she is she feels much better. She is able to sit down more comfortably. 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/hazards: No Cognitive needs: No Hearing needs: No Vision needs: No Female Reproductive History Menstrual Age of Menarche: 10 Review of Systems Const Denies chills and Denies fever(s) Card Denies chest pain, Denies dyspnea and Denies dyspnea on exertion Resp Denies cough, Denies dyspnea and Denies dyspnea on exertion GI Denies hematochezia and Denies change in bowel habits Denies hematuria Musc Denies back pain and Denies limited range of motion Neuro Denies focal weakness and Denies convulsions Psych Denies depression and Denies mood swings Physical Exam Vital Signs: Last Vital Signs Pulse 97 03/20/24 11:07 BP 120/76 03/20/24 11:07 BMI result Body Mass Index 32.1 Const General: comfortable and no acute distress Resp Effort & Inspection: normal respiratory effort GI Other: Rectal exam shows external hemorrhoid still with some thrombosis also much less in size compared to last week, not tender anymore Assessment & Plan Assessment & Plan (1) External hemorrhoid, thrombosed: Code(s): K64.5 - Perianal venous thrombosis Category: Medical Plan: This has improved significantly. She no longer has significant pain or tenderness. The size has decreased as well I told her to continue doing warm soaks to the area. I expect the hemorrhoid to continue to shrink in size She does understand that he may continue to have symptoms in the future and if this bothers her, she understands the option of hemorrhoidectomy. She says she will follow up with me down the line on a p.r.n. basis Coding Level of Care Code Est Pt Level 2 (95208) Diagnoses External hemorrhoid, thrombosed K64.5
== END 2024-03-20 11:36 | disposition home or self-care (01) ==
PROVIDERS: PCP Internal Medicine; Visit Provider Surgery
DX: K64.5 Perianal venous thrombosis (principal)
CPT/HCPCS: 99212

== ENCOUNTER → 2024-03-20 11:03 | Outpatient (BNVA) | payer OTHER, SELFPAY | PROVIDERS: PCP Internal Medicine; Visit Provider Surgery | DX: K64.5 Perianal venous thrombosis (principal) | CPT/HCPCS: 99212 ==

== ENCOUNTER 2024-04-09 13:36 | Outpatient (AMB) | payer OTHER, SELFPAY ==
--- NOTE | 2024-04-09 13:48 | MHC.PC.OV ---
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 She went to ER about a month ago due to this matter. Saw surgery shortly after and the hemorrhoids improved with Sitz baths and conservative measures. Today she feels markedly improved and will continue to do sitz baths prn. 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 Chapin Herndon, Kirti Eaton, Daniel Cornejo and colleagues, with an educational lashell from [employer]. Review of Systems Const All systems reviewed & are unremarkable except as noted in HPI and below Card Denies chest pain at rest, Denies chest pain with activity, Denies edema, Denies irregular heart rhythm, Denies claudication, Denies dyspnea, Denies dyspnea on exertion, Denies orthopnea, Denies paroxysmal nocturnal dyspnea and Denies slow heart rate Resp Denies cough, Denies dyspnea and Denies dyspnea on exertion Physical exam (Primary Care) Vital Signs: Last Vital Signs BP 106/82 04/09/24 13:49 BMI result Body Mass Index 31.5 Tobacco/Smoking Status: Tobacco use Status Tobacco use date assessed 01/24/24 04/09/24 13:49 Patient Tobacco Use Status Never used Tobacco 04/09/24 13:49 e-Cigarette/Vaping Use Never Used 04/09/24 13:49 Thrive Assessment: Date of Thrive Assessment Date Thrive assessed 01/24/24 04/09/24 13:49 Resp Effort & Inspection: normal respiratory effort Auscultation: clear to auscultation bilaterally Cardio Jugular venous distension: no JVD Rate: regular rate Rhythm: regular rhythm Heart sounds: S1 normal heart sound present and S2 normal heart sound present Extrem General: Yes full ROM Assessment and Plan Assessment & Plan (1) Hemorrhoids: Code(s): K64.9 - Unspecified hemorrhoids Plan: Continue conservative measures. Coding Level of Care Code Est Pt Level 3 (13039) Diagnoses Hemorrhoids K64.9 Time Spent (min) 19
[2024-04-09 13:49] VITALS: BP 106/82; BMI 31.5
== END 2024-04-09 14:14 | disposition home or self-care (01) ==
PROVIDERS: PCP Internal Medicine; Visit Provider Internal Medicine
DX: K64.9 Unspecified hemorrhoids (principal)
CPT/HCPCS: 99213

== ENCOUNTER 2024-05-24 11:22 | Outpatient (REF) | payer OTHER, SELFPAY ==
[2024-05-27 00:14] LABS: TS Negative Control Passed; TS Panel A 0; TS Panel B 0; TS Positive Control Passed; TSpotTB Negative (Negative)
[2024-05-27 22:48] LABS: Mumps Virus IgG Antibody >300.00 AU/mL; Rubeola IgG (Measles) >300.00 AU/mL
== END 2024-05-24 11:23 | disposition home or self-care (01) ==
LOC: HO.LAB 11:22
PROVIDERS: PCP Internal Medicine; Visit Provider Internal Medicine
DX: Z01.84 Encounter for antibody response examination (principal); Z11.1 Encounter for screening for respiratory tuberculosis
CPT/HCPCS: 36415; 86481; 86735; 86762; 86765

== ENCOUNTER 2024-06-12 10:26 | Outpatient (AMB) | payer OTHER, SELFPAY ==
--- NOTE | 2024-06-12 10:26 | MHC.OFFVIS ---
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 She is not having any eligibility examiner concerns at all she gets regular periods she is not sexually active and has not been sexually active since last year's visit. Last year's Pap was negative. She has no concerns currently or desire to start any method of contraception as she is not sexually active she still has the plan B prescription from last year but has not needed to use it because she did not have any unprotected sex. Her only health issue this year is that in either January or March she can not remember she had an issue with constipation and external hemorrhoids which were very swollen and she went to the emergency room and she was given MiraLax and she does not have a problem with constipation right now she working on having a better diet. She did follow-up with her primary care doctor and she intends to keep with this she was moving stiffly getting off the table and she shared that her right knee was a little bit swollen and bothering her discussed keeping her leg well aligned and quad strengthening exercises and activities to keep her knee as healthy as possible she is not feeling anything catch this time. 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[employer] Current occupational exposures/hazards: No Cognitive needs: No Hearing needs: No Vision needs: No Female Reproductive History Menstrual Age of Menarche: 10 Duration of menses: <3 days Date of last menstrual period: 06/01/24 control method: none Total pregnancies: 0 Date of last pap smear: 06/08/23 (negative) History of abnormal pap smear: No Physical Exam Vital Signs: Last Vital Signs BP 110/62 06/12/24 10:27 BMI result Body Mass Index 31.9 Const General: healthy appearing, comfortable, no acute distress, well developed and alert Nutritional Appearance: average body habitus Orientation/consciousness: patient oriented x3 Limitations: no limitations HEENT Head: Yes normocephalic Neck Neck: Yes normal visual inspection Chest Chest palpation & inspection: normal inspection of the chest Breast/axilla inspection: normal inspection of the breasts and normal inspection of the axillae Breast/axilla palpation: normal palpation of the breasts and normal palpation of the axillae Resp Effort & Inspection: normal respiratory effort GI Inspection: Yes normal to inspection, No Abdominal wall edema and No distended Palpation (GI): Soft to palpation and nontender Other: External exam within normal limits vagina is pink and moist cervix nulliparous pink smooth healthy appearing with normal appearing clear fish whitish mucus. Uterus midposition mobile nontender adnexa nontender. Moderate tone with Kegel instructed on tightening her muscles periodically to strength. General: Yes bladder normal to palpation External Female Exam: normal external appearance and normal appearance of the urethra Speculum Exam - Vagina: normal appearance of the vagina, normal palpation and normal vaginal discharge Speculum Exam - Cervix: normal appearance of the cervix, normal palpation and nontender Bimanual exam- vagina & uterus: normal bimanual exam, normal palpation, uterine size normal, bladder normal to palpation, consistency normal, normal palpation, uterine mobility normal, uterine shape normal, No Cervical tenderness present, non-tender and no cervical motion tenderness Bimanual Exam- Adnexa, other: normal adnexae, no masses, normal and No adnexal tenderness Neuro General: patient oriented x3 Results Reviewed Results Reviewed: Name: Dedra Manrique Age/Sex: 27/F Attending: Julisa Duque CNM : 1995 Submitted by: Julisa Duque CNM Copies to: MR #: [id number] Status: DEP REF Collected: 06/06/23 Location: [facility] Received: 06/08/23 Interpretation Satisfactory for evaluation. Negative for intraepithelial lesion or malignancy. Clinical Information LMP: 05/24/23 Previous PAP test: Unknown date/findings Material Received ThinPrep-Cervical Electronically Signed By: DANIEL Cardona (ASCP) 06/21/23 3619 The Pap Test is a screening procedure with the inherent possibility of both false negative and false positive results. Results should be interpreted in the context of historic and current clinical findings. Reliability of the Pap Test is enhanced by performing the test on a regular repetitive basis. Patient: Dedra Manrique Age/Sex: 27/F MR#: [id number] Page 1 of 1 Assessment & Plan Assessment & Plan (1) Hemorrhoids: Comment: Currently not at all swollen because she is avoiding constipation. Code(s): K64.9 - Unspecified hemorrhoids Category: Medical (2) control counseling: Comment: Currently abstinent, would use condoms if she became active, has prescription for Plan B as well. Code(s): Z30.09 - Encounter for other general counseling and advice on contraception Category: Medical (3) Well woman exam with routine gynecological exam: Code(s): Z01.419 - Encounter for gynecological examination (general) (routine) without abnormal findings Category: Medical (4) Screening for cervical cancer: Comment: 06/06/2023 1st Pap done. Patient believes she had Gardasil at the [facility] but will double check her records./ 06/06/2023 Pap is negative, next pap in 3 yrs ( 2025). 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 She is not having any eligibility examiner concerns at all she gets regular periods she is not sexually active and has not been sexually active since last year's visit. Last year's Pap was negative. She has no concerns currently or desire to start any method of contraception as she is not sexually active she still has the plan B prescription from last year but has not needed to use it because she did not have any unprotected sex. Her only health issue this year is that in either January or March she can not remember she had an issue with constipation and external hemorrhoids which were very swollen and she went to the emergency room and she was given MiraLax and she does not have a problem with constipation right now she working on having a better diet. She did follow-up with her primary care doctor and she intends to keep with this she was moving stiffly getting off the table and she shared that her right knee was a little bit swollen and bothering her discussed keeping her leg well aligned and quad strengthening exercises and activities to keep her knee as healthy as possible she is not feeling anything catch this time. -----Discussed in this visit the following: healthy balanced diet, regular and consistent exercise, getting recommended health screens, doing the best she can for her particular health concerns, kegel exercises, pap smear screening and followup recommendations, mammography screening and SBE, normal changes in cycles in her life stage---discussed staying active in keeping strong with walking and other methods of exercise and using good body mechanics when lifting boxes at her job. . Coding Level of Care Code Est Pt Prev Care 18-39y(15921) Diagnoses Hemorrhoids K64.9 control counseling Z30.09 Well woman exam with routine gynecological exam Z01.419 Screening for cervical cancer Z12.4
[2024-06-12 10:27] VITALS: BP 110/62; BMI 31.9
== END 2024-06-12 11:01 | disposition home or self-care (01) ==
LOC: HO.HWS 10:26
PROVIDERS: PCP Internal Medicine; Visit Provider Advanced Practice Midwife
DX: Z01.419 Encounter for gynecological examination (general) (routine) without abnormal findings (principal); K64.9 Unspecified hemorrhoids; Z30.09 Encounter for other general counseling and advice on contraception
CPT/HCPCS: 99395

== ENCOUNTER → 2024-06-12 10:26 | Outpatient (BNVA) | payer OTHER, SELFPAY | PROVIDERS: PCP Internal Medicine; Visit Provider Advanced Practice Midwife | DX: Z01.419 Encounter for gynecological examination (general) (routine) without abnormal findings (principal); Z30.09 Encounter for other general counseling and advice on contraception; Z12.4 Encounter for screening for malignant neoplasm of cervix; K64.9 Unspecified hemorrhoids | CPT/HCPCS: 99395 ==

== ENCOUNTER 2024-08-02 19:36 | Emergency (ER) | payer OTHER, SELFPAY ==
[2024-08-02 20:03] VITALS: BP 135/91; PULSE 100; RESP 16; TEMP 36.4; O2SAT 98; BMI 31.9
--- NOTE | 2024-08-02 23:49 | ED_ITS ---
HPI - General Adult General Chief complaint: Extremity Problem Stated complaint: Pain in L Leg Time Seen by Provider: 08/02/24 23:29 Source: patient, RN notes reviewed and old records reviewed Mode of arrival: ambulatory Limitations: no limitations History of Present Illness ED Provider: Brianda RAND narrative: 28-year-old female who denies any past medical history presents for evaluation of left leg pain and numbness. She reports her symptoms 1st started yesterday. She has symptoms mostly to the front of the left lower leg and left thigh. Her pain is worse with walking. She endorses being her feet throughout the day. She has no back pain, no hip pain. She has no symptoms of the right side. She is not on control, denies any recent travel Denies any injury to the back or left lower extremity Related Data Previous Rx's ?Medication ?Instructions ?Recorded lidocaine 5 % topical ointment 1 appl topical QID PRN pain #50 03/09/24 grams ibuprofen 600 mg tablet 600 mg PO TID PRN pain #20 tabs 03/11/24 Allergies Allergy/AdvReac Type Severity Reaction Status Date / Time No Known Allergies Allergy Verified 08/02/24 20:06 Review of Systems 2 Constitutional: Constitutional: Denies body ache(s), Denies chills and Denies fever(s) ENT: Denies sore throat Cardiovascular: Cardiovascular: Denies chest pain and Denies dyspnea Respiratory: Respiratory: Denies cough and Denies dyspnea Gastrointestinal: Gastrointestinal: Denies abdominal pain Musculoskeletal: Musculoskeletal: Denies arthralgias, Denies joint swelling and Denies limited range of motion Comments: Reports left leg pain and numbness Integumentary/Breasts: Skin/Breast: Denies rash PMFSH Past Medical History Surgical History No pertinent past surgical history Family History Family History Mother Hypertension Father Type II diabetes mellitus High cholesterol Hypertension Social History Social History Housing: House Alcohol intake: current Alcohol intake frequency: holidays/special occasions only Alcohol type: beer and hard liquor Patient Tobacco Use Status: Never used Tobacco e-Cigarette/Vaping Use: Never Used Second Hand Smoke Exposure: No Advance Directives: No Advance Directives Information Provided: No Do you have a plan to hurt others: No Plan service: No Current occupational status: employed 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[employer] Current occupational exposures/hazards: No Cognitive needs: No Hearing needs: No Vision needs: No Physical Exam ED Vital Signs: Vital Signs - 24 hr 08/02/24 20:03 08/03/24 00:03 Temperature 97.5 F 98.7 F Pulse Rate 100 86 Respiratory Rate 16 16 Blood Pressure 135/91 H 132/94 H Pulse Oximetry 98 97 Oxygen Delivery Method Room Air Room Air BMI result Body Mass Index 31.9 Const General: healthy appearing, comfortable, no acute distress, alert and awake Nutritional Appearance: well nourished Orientation/consciousness: patient oriented x3 HENMT Head: Yes normocephalic and Yes atraumatic Eyes Eyelids: Yes eyelids normal Conjunctivae: conjunctivae normal Sclerae: sclerae normal Corneas: corneas normal Pupils: Equal, round and reactive pupils present EOM: EOMs intact bilaterally Neck Neck: Yes full ROM Resp Effort & Inspection: normal respiratory effort, able to speak in complete sentences and not labored Skin General skin exam: elasticity normal Neuro General: patient oriented x3 Cranial nerves: Yes Equal, round and reactive pupils present and Yes Bilaterally intact EOM present Cognition (Neuro): normal cognition Extrem Other: Moving all extremities well without any obvious deformities. The patient has good range of motion with flexion-extension of the left hip, left knee and left ankle. There is no significant edema, no rashes. She has no palpable cords, no calf tenderness. Medical Decision Making Medical Decision Making [facility] Narrative: [age] old female with no significant past medical history presents for evaluation of vague symptoms to left lower extremity. She complains of occasional pain, occasional numbness. She has no back pain to suggest will take her cause of her pain. She has no skin changes to suggest cellulitic causes. No risk factors for DVT/PE. Plan for basic labs, D-dimer but I feel that a DVT is less likely. Ultrasound is unfortunately gone for the day. Differential Diagnosis Differential Diagnoses: The differential diagnosis associated with the presentation includes Left leg pain Paresthesia Alba's cyst Muscle strain Bronson splints DVT less likely Lab Data [facility] Lab Attestation statement: I reviewed the patient's lab results. No leukocytosis or significant anemia. Normal platelet count. No significant electrolyte abnormalities warranting intervention. The patient's carbon dioxide level is low at 20 which may be related to hyperventilation. I think the patient's symptoms may be related to anxiety. D-dimer is negative 08/03/24 00:07 08/03/24 00:07 Labs: Lab Results 08/03/24 Range/Units 00:07 WBC 8.6 (4.8-10.8) X10*3/uL RBC 4.35 (4.20-5.50) X10*6/uL Hgb 11.7 L (12.0-16.0) g/dl Hct 37.3 (37.0-47.0) % MCV 85.7 (80.0-98.0) fL MCH 26.9 L (27.0-33.0) pg MCHC 31.4 (31.0-35.0) g/dl RDW 13.7 (11.0-16.0) % Plt Count 375 (160-400) X10*3/uL MPV 10.5 (9.4-12.3) fL Immature Gran % (Auto) 0.3 (0.0-0.4) % Neut % (Auto) 65.7 (45-73) % Lymph % (Auto) 24.8 (20-40) % [place] % (Auto) 8.1 (2-11) % Eos % (Auto) 0.8 (0-4) % Baso % (Auto) 0.3 (0-2) % Lymph # (Auto) 2.1 (1.2-4.9) X10*3/uL [place] # (Auto) 0.7 (0.1-1.2) X10*3/uL Eos # (Auto) 0.1 (0.0-0.4) X10*3/uL Baso # (Auto) 0.0 (0.0-0.2) X10*3/uL Abs Immat Gran (auto) 0.03 (0.00-0.03) X10*3/uL Absolute Neuts (auto) 5.6 (2.0-8.3) x10*3/uL Absolute Nucleated RBC 0.000 (0.0-0.012) X10*3/uL Nucleated RBC % (auto) 0.0 (0.0-0.2) /100WBC D-Dimer High Sensitivty < 150 NG/ML Sodium 140 (135-145) mmol/L Potassium 4.0 (3.3-5.1) mmol/L Chloride 112 H (96-108) mmol/L Carbon Dioxide 20 L (22-29) mmol/L Anion Gap 12 (12-20) BUN 12 (9-16) mg/dL Creatinine 0.75 (0.5-1.4) mg/dL Estim Creat Clear Calc 110.9 Estimated GFR > 60 Random Glucose 98 (60-115) mg/dL Calcium 9.3 D (8.4-10.2) mg/dL Discharge Plan Discharge Clinical Impression: Leg pain, left Patient Disposition: Home, Self-Care Instructions: Leg Pain (ED) Additional Instructions: Your blood work today was reassuring. Your blood work indicates that it is extremely unlikely that you have a blood clot in your leg. There is no evidence of infection. Your symptoms may be related to bronson splints You may use ibuprofen or Tylenol for pain Follow-up with your primary doctor Prescriptions: No Action lidocaine 5 % ointment 1 appl topical QID PRN (Reason: pain) Qty: 50 0RF Rx Instructions: Use topical 15-20 minutes prior to bowel movements and p.r.n. pain ibuprofen 600 mg tablet 600 mg PO TID PRN (Reason: pain) Qty: 20 1RF Print Language: Citizen Of [place]
[2024-08-03 00:03] VITALS: BP 132/94; PULSE 86; RESP 16; TEMP 37.1; O2SAT 97
--- NOTE | 2024-08-03 00:08 | MHC.EDTECH ---
This pct just assumed care of patient ,vitals taken ,blood drawn and sent to lab .
[2024-08-03 00:15] LABS: MANUAL DIFF FLAG NO
[2024-08-03 00:16] LABS: Basophils Percent Auto 0.3 % (0-2); Eosinophils Absolute Auto 0.1 X10*3/uL (0.0-0.4); Eosinophils Percent Auto 0.8 % (0-4); Hematocrit 37.3 % (37.0-47.0); Hemoglobin 11.7 g/dl (12.0-16.0); Imm Gran Abs Auto 0.03 X10*3/uL (0.00-0.03); Imm Gran Pct Auto 0.3 % (0.0-0.4); Lymphocytes Absolute Auto 2.1 X10*3/uL (1.2-4.9); Lymphocytes Percent Auto 24.8 % (20-40); Mean Corpuscular HGB Conc 31.4 g/dl (31.0-35.0); Mean Corpuscular Hemoglobin 26.9 pg (27.0-33.0); Mean Corpuscular Volume 85.7 fL (80.0-98.0); Mean Platelet Volume 10.5 fL (9.4-12.3); Monocytes Absolute Auto 0.7 X10*3/uL (0.1-1.2); Monocytes Percent Auto 8.1 % (2-11); Neutrophils Absolute Auto 5.6 x10*3/uL (2.0-8.3); Neutrophils Percent Auto 65.7 % (45-73); Platelet Count 375 X10*3/uL (160-400); Red Blood Count 4.35 X10*6/uL (4.20-5.50); Red Cell Distribution Width 13.7 % (11.0-16.0); White Blood Count 8.6 X10*3/uL (4.8-10.8)
[2024-08-03 00:24] LABS: D Dimer High Sensitivity < 150 NG/ML
[2024-08-03 00:29] LABS: Anion Gap 12 (12-20); Blood Urea Nitrogen 12 mg/dL (9-16); Calcium 9.3 mg/dL (8.4-10.2); Carbon Dioxide 20 mmol/L (22-29); Chloride 112 mmol/L (96-108); Creatinine Clr Calc Pharmacy 110.9; Estimated Glomerular Filt Rate > 60; Glucose Random 98 mg/dL (60-115); Sodium 140 mmol/L (135-145)
[2024-08-03 00:53] VITALS: BP 132/94; PULSE 86; RESP 16; TEMP 37.1; O2SAT 97
== END 2024-08-03 00:53 | disposition home or self-care (01) ==
PROVIDERS: Physician Assistant; Emergency Provider Emergency Medicine; PCP Internal Medicine
DX: M79.605 Pain in left leg (principal); Z79.899 Other long term (current) drug therapy
CPT/HCPCS: 36415; 80048; 85025; 85379; 99283

== ENCOUNTER 2024-10-15 10:04 | Outpatient (AMB) | payer OTHER, SELFPAY ==
--- NOTE | 2024-10-15 10:05 | MHC.PC.OV ---
Vital Signs 10/15/24 10:06 Height 5 ft 3 in Weight 187 lb BMI 33.1 BP 118/80 Blood Pressure Location Lt brachial Position Sitting Intake Visit Reasons: 6mth f/u Intake Note: Patient here for a 6 month follow up. 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 Required: No Accompanied by: Self / Same As Patient Allergies No Known Allergies Allergy (Verified 10/15/24 10:14) Medication List - Last Reconciled 10/15/24 by Dedra Swift MD ibuprofen 600 mg PO TID PRN lidocaine 5% 1 appl topical QID PRN Tobacco use date assessed: 01/24/24 Dental Screening Dental Screen Date: 10/15/24 Did you have a dental visit in the last 12 months?: Yes Did you have a dental problem in the last 6 months where you did not have access to dental care?: No Was dental information given to patient?: Patient has dentist HPI HPI Comments History of Present Illness Details The patient is a 28-year-old female presenting with pain in the left lower leg. The pain reportedly started prior to an emergency room visit in July. An evaluation at that time did not conclusively identify a blood clot; an ultrasound was not performed. Clinicians assessed it did not clinically appear to be a blood clot. The patient was prescribed ibuprofen for pain management. The pain has since subsided. There is no recollection of inciting events that preceded the pain. The patient was informed that reducing weight through diet and exercise could aid in alleviating any potential exacerbation of pain. 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 How often do you have a drink containing alcohol?: Monthly or less 2. How many drinks containing alcohol do you have on a typical day when you are drinking?: 1 or 2 3. How often do you have six or more drinks on one occasion?: Never Total Score: 1 Score Reviewed/Action Taken: No DELLA-7 AMB Questionnaire DELLA-7 Date DELLA - 7 assessed: 01/24/24 Source: Developed by Drs. Chapin Herndon, Kirti Eaton, Daniel Cornejo and colleagues, with an educational lashell from [employer]. Review of Systems Const All systems reviewed & are unremarkable except as noted in HPI and below Eyes Reports no additional complaints, Denies change in vision and Denies other visual disturbances Card Denies chest pain at rest, Denies chest pain with activity, Denies edema, Denies irregular heart rhythm, Denies claudication, Denies dyspnea, Denies dyspnea on exertion, Denies orthopnea, Denies paroxysmal nocturnal dyspnea and Denies slow heart rate Resp Denies cough, Denies dyspnea and Denies dyspnea on exertion GI Denies abdominal pain, Denies change in bowel habits, Denies excessive flatus, Denies nausea and Denies vomiting Denies urinary incontinence, Denies urinary hesitancy and Denies urinary urgency Musc Denies abnormal gait, Denies atrophy, Denies deformity and Denies limited range of motion Skin/Breast Denies bleeding lesions, Denies changing lesions and Denies rash Neuro Denies abnormal gait and Denies lack of coordination Physical exam (Primary Care) Vital Signs: Last Vital Signs BP 118/80 10/15/24 10:06 BMI result Body Mass Index 33.1 BMI Assessment/Plan discussion: High BMI High, discussed plan: lifestyle, weight reduction, dietary and physical activity Tobacco/Smoking Status: Tobacco use Status Tobacco use date assessed 01/24/24 10/15/24 10:09 Patient Tobacco Use Status Never used Tobacco 10/15/24 10:09 e-Cigarette/Vaping Use Never Used 10/15/24 10:09 Thrive Assessment: Date of Thrive Assessment Date Thrive assessed 01/24/24 10/15/24 10:09 Resp Effort & Inspection: normal respiratory effort Auscultation: clear to auscultation bilaterally Cardio Jugular venous distension: no JVD Rate: regular rate Rhythm: regular rhythm Heart sounds: S1 normal heart sound present and S2 normal heart sound present Extrem General: Yes full ROM Office Procedures Flu Questionnaire Does the patient have a severe egg allergy?: No Immunizations Fluarix Triv [id number] (PF) 45 mcg (15 mcg x 3)/0.5 mL IM syringe Performing Provider: Dedra Swift MD [facility] [place] [facility] Documented (not given) by: PHYLICIA Cohen on 10/15/24 10:19 Reason Not Given: Patient Refused Coding Level of Care Code Est Pt Level 3 (76512) Complex EM visit Add On G2211 Diagnoses Left leg pain M79.605 Class 1 obesity with body mass index (BMI) of 33.0 to 33.9 in adult E66.811; Z68.33 Time Spent (min) 19 Assessment & Plan Assessment & Plan (1) Left leg pain: Code(s): M79.605 - Pain in left leg Category: Medical (2) Class 1 obesity with body mass index (BMI) of 33.0 to 33.9 in adult: Code(s): E66.811 - Obesity, class 1; Z68.33 - Body mass index [BMI] 33.0-33.9, adult Category: Medical Plan - For left lower extremity pain: The pain has resolved on its own; no immediate intervention required. Recommend continued use of ibuprofen as necessary for any recurrent pain. - For BMI management: Advise initiation of 30 minutes of exercise at least five times per week and implementation of a low carbohydrate dietary plan to manage weight effectively and avoid exacerbating any potential discomfort. - Further diagnostic studies are not necessary at this time, considering the resolution of symptoms. Patient was informed and verbally consented to the use of an ambient scribe for clinic note documentation during this visit. The patient was counseled on the resolution of her left leg pain, which subsided after initial treatment with ibuprofen, and the lack of clinical indicators pointing towards a more severe condition like deep vein thrombosis at her emergency room visit. I stressed the importance of initiating a regular exercise regimen and adhering to dietary recommendations to address her class 1 obesity, which could impact her overall health and potentially reduce the likelihood of future musculoskeletal discomfort. We discussed why current management focusing on lifestyle alterations was preferable given the remission of pain. No further diagnostic procedures were deemed necessary, provided she remains symptom-free. Orders: Orders Influenza [id number] Immunization Today Z23 - Encounter for immunization Patient Instructions: - Continue taking ibuprofen as needed for any recurrence of leg pain. - Engage in 30 minutes of exercise at least five days a week. - Follow a low carbohydrate dietary plan to manage weight. - Monitor for recurrence of leg pain or any new symptoms and seek medical advice if they occur.
[2024-10-15 10:06] VITALS: BP 118/80; BMI 33.1
== END 2024-10-15 10:25 | disposition home or self-care (01) ==
PROVIDERS: PCP Internal Medicine; Visit Provider Internal Medicine
DX: M79.605 Pain in left leg (principal); E66.811 Obesity, class 1; Z68.33 Body mass index [BMI] 33.0-33.9, adult; Z23 Encounter for immunization

== ENCOUNTER → 2024-10-15 10:04 | Outpatient (BNVA) | payer OTHER, SELFPAY | PROVIDERS: PCP Internal Medicine; Visit Provider Internal Medicine | DX: E66.811 Obesity, class 1 (principal); Z68.33 Body mass index [BMI] 33.0-33.9, adult; Z71.3 Dietary counseling and surveillance | CPT/HCPCS: 90471; 99212 ==

== ENCOUNTER 2025-01-29 09:35 | Outpatient (AMB) | payer OTHER, SELFPAY ==
--- NOTE | 2025-01-29 09:37 | A.OFFPC_ITS ---
Vital Signs 01/29/25 09:38 Height 5 ft 3 in Weight 183 lb BMI 32.4 BP 120/82 Blood Pressure Location Lt brachial Position Sitting Intake Visit Reasons: PE Intake Note: Patient here for a physical exam Manager Validation Required: No Accompanied by: Self / Same As Patient Allergies No Known Allergies Allergy (Verified 01/29/25 09:57) Medication List - Last Reconciled 01/29/25 by Dedra Swift MD No Known Home Meds Tobacco use date assessed: 01/29/25 Dental Screening Dental Screen Date: 01/29/25 Did you have a dental visit in the last 12 months?: Yes Did you have a dental problem in the last 6 months where you did not have access to dental care?: No Was dental information given to patient?: Patient has dentist HPI HPI Comments History of Present Illness Details The patient is a 29-year-old female presenting for an annual physical examination and wellness check. She confirmed her tetanus vaccination was most recently administered in 2022, and she has completed a recent Pap smear. Mild depressive symptoms were noted but are not presently impacting her routine. Plans were outlined for laboratory work to assess lipid profile, blood glucose levels, renal and hepatic functions, and to reevaluate previously noted borderline low hemoglobin levels. - Last tetanus vaccination administered in 2022; next due in 2032. - Screening plans include assessments fo r cholesterol, glucose, renal, and hepatic functions. - Last Pap smear conducted in 2022. - Plan to evaluate and monitor hemoglobi n levels due to previous borderline low readings. 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 1. Little interest or pleasure in doing things: more than half the days 2. Feeling down, depressed, or hopeless: not at all 3. Trouble falling or staying asleep, or sleeping too much: not at all 4. Feeling tired or having little energy: not at all 5. Poor appetite or overeating: several days 6. Feeling bad about yourself - or that you are a failure or have let yourself or your family down: not at all 7. Trouble concentrating on things, such as reading the newspaper or watching television: not at all 8. Moving or speaking so slowly that other people could have noticed. Or the opposite - being so fidgety or restless that you have been moving around a lot more than usual: not at all 9. Thoughts that you would be better off or of hurting yourself in some way: not at all Total score: 3 Depression Screening Interpretation: Positive Depression Screening Follow-up: Existing condition and Follow-up Visit Requested Depression Screening Done: Yes 29936 - PHQ-9 Billing: Yes Source: Developed by Drs. Chapin Herndon, Kirti Eaton, Daniel Cornejo and colleagues, with an educational lashell from [employer]. Thrive Questionnaire Date Thrive assessed: 01/29/25 I am a: Patient What is your living situation today?: I have a steady place to live Within the past 12 months, did the food you bought not last and you didn't have the money to get more?: Never true Within the past 12 months, did you worry whether your food would run out before you got money to buy more?: Never true Do you have trouble paying for medicines?: No Do you have trouble getting transportation to medical appointments?: No Do you have trouble paying your heating and electricity bill?: No Do you have trouble taking care of your child, family member or friend?: No Do you have trouble with day-to-day activities such as bathing, preparing meals, shopping, managing finances, etc.?: No Are you currently unemployed and looking for a job?: No Are you interested in more education?: No Please select the resources that you would like help with: None Currently or been in a relationship where the following occur: No concerns reported THRIVE Score: 0 AUDIT C Alcohol Use Questionnaire (AUDIT-C) 1. How often do you have a drink containing alcohol?: Monthly or less 2. How many drinks containing alcohol do you have on a typical day when you are drinking?: 1 or 2 3. How often do you have six or more drinks on one occasion?: Less than monthly Total Score: 2 Score Reviewed/Action Taken: No DELLA-7 AMB Questionnaire DELLA-7 Date DELLA - 7 assessed: 01/29/25 Feeling nervous, anxious, or on edge: 0 = Not at all Not being able to stop or control worryin = Not at all Worrying too much about different things: 0 = Not at all Trouble relaxin = Not at all Being so restless that it is hard to sit still: 0 = Not at all Becoming easily annoyed or irritable: 0 = Not at all Feeling afraid as if something awful might happen: 0 = Not at all Total DELLA-7 score (0-4 normal; 5-9 mild; 10-14 moderate; 15-21 severe): 0 Source: Developed by Drs. Chapin Herndon, Kirti Eaton, Daniel Cornejo and colleagues, with an educational lashell from [employer]. DELLA-7 Assessment Billing DELLA-7 Assessment Tool: DELLA-7 Assessment 96600 Review of Systems Const All systems reviewed & are unremarkable except as noted in HPI and below Card Denies chest pain at rest, Denies chest pain with activity, Denies edema, Denies irregular heart rhythm, Denies claudication, Denies dyspnea, Denies dyspnea on exertion, Denies orthopnea, Denies paroxysmal nocturnal dyspnea and Denies slow heart rate Resp Denies cough, Denies dyspnea and Denies dyspnea on exertion GI Denies abdominal pain, Denies change in bowel habits, Denies excessive flatus, Denies nausea and Denies vomiting Physical exam (Primary Care) Vital Signs: Last Vital Signs BP 120/82 01/29/25 09:38 BMI result Body Mass Index 32.4 BMI Assessment/Plan discussion: High BMI High, discussed plan: lifestyle, weight reduction, dietary and physical activity Tobacco/Smoking Status: Tobacco use Status Tobacco use date assessed 03/19/25 03/19/25 09:44 Patient Tobacco Use Status Never used Tobacco 01/29/25 09:44 e-Cigarette/Vaping Use Never Used 01/29/25 09:44 PHQ-9: PHQ-9 Score PHQ-9: Total score 3 01/29/25 10:04 Depression Screening Interpretation: Positive Depression Screening Follow-up: Existing condition and Follow-up Visit Requested Thrive Assessment: Date of Thrive Assessment Date Thrive assessed 01/29/25 01/29/25 09:44 Currently or been in a relationship where the following occur: No concerns reported Resp Effort & Inspection: normal respiratory effort Auscultation: clear to auscultation bilaterally Cardio Jugular venous distension: no JVD Rate: regular rate Rhythm: regular rhythm Heart sounds: S1 normal heart sound present and S2 normal heart sound present Extrem General: Yes full ROM Coding Level of Care Code Est Pt Prev Care 18-39y(68255) Diagnoses Physical exam Z00.00 Additional Codes DELLA-7 Assessment Billing - DELLA-7 Assessment Tool: DELLA-7 Assessment 51185 ([id number]) PHQ-9 - 48203 - PHQ-9 Billing: Yes ([id number]) Time Spent (min) 31 Assessment & Plan Assessment & Plan (1) Physical exam: Code(s): Z00.00 - Encounter for general adult medical examination without abnormal findings Category: Medical Plan Screening tests are to be conducted for lipid profiling, glycemic control, renal, and liver functions. Given her history of anemia, hemoglobin re- evaluation will occur alongside these tests: Mild depressive symptoms were verbally reported but appear non-disruptive. The patient will be reminded to complete all laboratory testing within three months, observing an eight-hour fast, and consuming water is permitted during fasting. These steps will help ensure continued health monitoring and care. Patient was informed and verbally consented to the use of an ambient scribe for clinic note documentation during this visit. During today's visit, I discussed the patient's ongoing health maintenance plan, reaffirming the up-to-date status of her tetanus vaccination and the completed Pap smear. We reviewed the necessity and importance of upcoming laboratory tests for cholesterol, glucose, kidney, liver functions, and hemoglobin evaluation. The patient exhibited understanding of the recommended eight-hour fasting period for accurate lab results and consented to complete all tests within the advised timeframe. We briefly touched on her mild depressive symptoms; however, no primary intervention was required at this moment as they do not significantly impact her quality of life. Follow-up was scheduled based on test results. Orders: Orders Complete Blood Count Auto Diff Today D64.9 - Anemia, unspecified Lipid Panel Today Z00.00 - Encounter for general adult medical examination without abnormal findings IRON PROFILE Today D64.9 - Anemia, unspecified Comprehensive [place]. Panel Fast Today Z00.00 - Encounter for general adult medical examination without abnormal findings Patient Instructions: - Schedule and complete laboratory tests within the next three months. - Fast for eight hours prior to blood work (can consume water). - Return for test results review and any needed follow-up. - Maintain current tetanus vaccination schedule (next due in 2032). - Monitor and report any changes in symptoms or health status.
[2025-01-29 09:38] VITALS: BP 120/82; BMI 32.4
--- OUTSIDE RECORDS SUMMARY | 2025-01-29 10:38 | XMS_ITS | Clinical Summary ---
Author Organization [facility] ity Address [address] [place] [address] Care Team Providers Care Reproduction Artist Name Role Phone Unavailable Primary Care Provider Unavailabl e Social History Tobacco Use Types Packs/Day Years Used Date Smoking Tobacco: Never Assessed Comments Unknown Sex and Gender Information Value Date Recorded Sex Assigned at Not on file Legal Sex Female 1:39 PM EDT Gender Identity Not on file Sexual Orientation Not on file Plan of Treatment Health Maintenance Due Date Last Done Comments DTaP,Tdap,and Td Vaccines (1 - Tdap) 2012 Hepatitis B Vaccines (1 of 3 - 19+ 3-dose series) 2012 Cervical Cancer Screening: P ap Smear 2014 Depression Screening 06/14/2024 HIV Screening 06/14/2024 Hepatitis C Screening 06/14/2024 Social Influencers of Health Screening 06/14/2024 COVID-19 Vaccine ( - 2023-2 5 season) 2024 Influenza Vaccine (#1) 2024 HIB Vaccines Aged Out No longer eligi ble based on patient's age to complete this topic HPV Vaccines Aged Out No longer eligi ble based on patient's age to complete this topic Hepatitis A Vaccines Aged Out No long er eligible based on patient's age to complete this topic IPV Vaccines Aged Out No longer eligi ble based on patient's age to complete this topic MMR Vaccines Aged Out No longer eligi ble based on patient's age to complete this topic Meningococcal ACWY Vaccine Aged Out N o longer eligible based on patient's age to complete this topic Meningococcal B Vacine Aged Out No lo nger eligible based on patient's age to complete this topic Pneumococcal Vaccine: Pediat rics (0 to 5 Years) and At-Risk Patients (6 to 64 Years) Aged Out No longer eligible b ased on patient's age to complete this topic RSV Immunization Patients Un patrice 20 months Aged Out No longer eligible b ased on patient's age to complete this topic Varicella Vaccines Aged Out No longer eligible based on patient's age to complete this topic
== END 2025-01-29 10:07 | disposition home or self-care (01) ==
LOC: HO.HMCH 09:35
PROVIDERS: PCP Internal Medicine; Visit Provider Internal Medicine
DX: Z00.00 Encounter for general adult medical examination without abnormal findings (principal)

== ENCOUNTER 2025-01-29 09:35 | Outpatient (REF) | payer OTHER, SELFPAY ==
[2025-01-29 10:31] LABS: MANUAL DIFF FLAG NO
[2025-01-29 11:06] LABS: Basophils Percent Auto 0.3 % (0-2); Eosinophils Absolute Auto 0.1 X10*3/uL (0.0-0.4); Hematocrit 37.5 % (37.0-47.0); Hemoglobin 11.9 g/dl (12.0-16.0); Imm Gran Abs Auto 0.02 X10*3/uL (0.00-0.03); Imm Gran Pct Auto 0.3 % (0.0-0.4); Lymphocytes Absolute Auto 1.7 X10*3/uL (1.2-4.9); Lymphocytes Percent Auto 28.2 % (20-40); Mean Corpuscular HGB Conc 31.7 g/dl (31.0-35.0); Mean Corpuscular Hemoglobin 26.5 pg (27.0-33.0); Mean Corpuscular Volume 83.5 fL (80.0-98.0); Mean Platelet Volume 10.6 fL (9.4-12.3); Monocytes Absolute Auto 0.7 X10*3/uL (0.1-1.2); Monocytes Percent Auto 11.1 % (2-11); Neutrophils Absolute Auto 3.5 x10*3/uL (2.0-8.3); Neutrophils Percent Auto 59.1 % (45-73); Platelet Count 346 X10*3/uL (160-400); Red Blood Count 4.49 X10*6/uL (4.20-5.50); Red Cell Distribution Width 14.4 % (11.0-16.0)
[2025-01-29 12:07] LABS: Alanine Aminotransferase 21 U/L (0-31); Albumin Level 4.1 g/dL (3.5-5.0); Alkaline Phosphatase 70 U/L (39-117); Anion Gap 9 (12-20); Aspartate Amino Transferase 19 U/L (5-31); Bilirubin Total 0.5 mg/dL (0.0-1.0); Blood Urea Nitrogen 12 mg/dL (9-16); Calcium 8.7 mg/dL (8.4-10.2); Carbon Dioxide 24 mmol/L (22-29); Chloride 110 mmol/L (96-108); Cholesterol 182 mg/dL (<200); Estimated Glomerular Filt Rate > 60; Glucose Fasting 88 mg/dL (60-99); HDL Cholesterol 58 mg/dL (>40); Iron 29 mcg/dL (30-160); LDL Cholesterol Calculated 113 mg/dL (<100); Percent Iron Saturation 8 % (15-50); Potassium 3.7 mmol/L (3.3-5.1); Sodium 139 mmol/L (135-145); Total Iron Binding Capacity 383 mcg/dL (228-428); Total Protein 7.2 g/dL (6.5-8.0); Triglycerides 56 mg/dL (<150); Unsaturated Iron Binding 354 ug/dL
== END 2025-01-29 09:36 | disposition home or self-care (01) ==
LOC: HO.LAB 09:35
PROVIDERS: PCP Internal Medicine; Visit Provider Internal Medicine
DX: Z00.00 Encounter for general adult medical examination without abnormal findings (principal); D64.9 Anemia, unspecified
CPT/HCPCS: 36415; 80053; 80061; 83540; 85025; 96127; 99395